=== PATIENT | female | born 1925 | race Caucasian/White ===

== ENCOUNTER 2016-10-29 10:00 | Outpatient (RCR) | payer MEDICARE, OTHER | END 2016-11-13 | disposition home or self-care (01) | LOC: PTY 10:00 | DX: R26.9 Unspecified abnormalities of gait and mobility (principal) | CPT/HCPCS: 97110; G8978; G8979 ==

== ENCOUNTER 2016-11-20 10:01 | Outpatient (RCR) | payer MEDICARE, OTHER | END 2016-12-11 | disposition home or self-care (01) | LOC: PTY 10:01 | DX: R26.9 Unspecified abnormalities of gait and mobility (principal) ==